=== PATIENT | female | born 1945 | race Caucasian/White ===

== ENCOUNTER 2018-07-31 10:13 | Observation (INO) | payer MEDICARE ==
[2018-07-31 10:57] LABS: #Eosinphils 0.3 thou/uL (0.0-0.7); #Lymphocytes 1.4 thou/uL (1.20-3.40); #Monocytes 0.4 thou/uL (0.11-0.59); %Basophils 0.2 % (0.0-1.0); %Eosinophils 2.5 % (0.0-10.0); %Lymphocytes 11.6 % (21.0-51.0); %Monocytes 3.5 % (0.0-10.0); %Neutrophils 82.2 % (42.0-75.0); Hemoglobin 14.3 g/dL (12.0-16.0); Mean Corpuscular HGB CONC 32.2 g/dL (32.0-36.0); Mean Corpuscular Hemoglobin 29.1 pg (27.0-31.0); Mean Corpuscular Volume 90.4 fL (78.0-98.0); Mean Platelet Volume 7.9 fL (7.4-10.4); Platelet Count 202 thou/uL (130-400); RBC Distribution Width 12.5 % (11.5-14.5); Red Blood Cell (RBC) Count 4.92 mill/uL (4.20-5.40); White Blood Cell (WBC) Count 12.2 thou/uL (4.8-10.8)
[2018-07-31 11:09] LABS: Bilirubin Negative (Negative); Blood, Urine Small (Negative); Clarity CLOUDY (Clear); Glucose, Urine (Dipstick) Negative (Negative); Leukocyte Negative (Negative); Nitrite Negative (Negative); Protein, Urine (Dipstick) 30 mg/dL (Neg-Trace); Specific Gravity, Urine 1.018 (1.002-1.036); Urobilinogen 0.2 mg/dL (0.2-1.0)
[2018-07-31 11:13] LABS: Bacteria/HPF None Seen HPF (None Seen); Pathc Cast-AUWi Flag 1.88 (0-2.49); RBC/HPF 0-3 HPF (0-3); WBC/HPF 0-3 HPF (0-3); Yeast-AUWi Flag 18.8 (0-25.0)
[2018-07-31 11:21] LABS: ALT (SGPT) 19 U/L (8-55); AST (SGOT) 24 U/L (5-34); Albumin 3.8 g/dL (3.4-4.8); Alkaline Phosphatase 71 U/L (40-150); Anion Gap 13 mmol/L (10-20); BUN (Urea Nitrogen) 14 mg/dL (9.8-20.1); Bilirubin, Total 0.6 mg/dL (0.2-1.2); CK (CPK) 41 U/L (29-168); Calc. Creatinine Clearance 0 mL/min (70-130); Calcium 9.3 mg/dL (7.8-10.44); Carbon Dioxide 20 mmol/L (23-31); Chloride 109 mmol/L (98-107); Estimated GFR-MDRD 64; Globulin 3.6 g/dL (2.4-3.5); Glucose 144 mg/dL (83-110); Potassium 4.1 mmol/L (3.5-5.1); Protein, Total 7.4 g/dL (6.0-8.3)
[2018-07-31 11:22] LABS: Hyaline Casts/LPF 0-3 HYALINE CAST LPF (0-3 Hyaline); Renal Epithelial 0-3 HPF (0-3); Transitional Epithelial 0-3 HPF (0-3); Yeast-All Forms Rare HPF (None Seen)
[2018-07-31 11:23] LABS: Crystals/HPF 1+ AMORPH URATES HPF (Negative)
[2018-07-31 11:25] LABS: CKMB 1.8 ng/mL (0-6.6)
[2018-07-31 12:04] LABS: Sodium 138 mmol/L (136-145)
[2018-07-31 12:44] LABS: Troponin I Less than 0.010 ng/mL (< 0.028)
[2018-07-31] MEDS ORDERED: levETIRAcetam In NaCl (Iso-Os) 1,500 MG in Premix Bag 1 BAG IVPB SCH (13:30)
[2018-07-31] MEDS ORDERED: Iopamidol 370 76% 100 ML VIAL ONE (13:42)
--- NOTE | 2018-07-31 13:58 | CT ---
HEAD CT WITHOUT CONTRAST: HISTORY: Level II trauma. Fall from standing. COMPARISON: None. FINDINGS: No parenchymal hemorrhage. No extraaxial hematoma. No midline shift. Basilar cisterns are patent. Brain volume is age appropriate. Cortical miranda white matter differentiation is preserved. Ventricl es and sulci are patent and symmetric. White matter hypodensities due to chronic small vessel ischemic change. The calvarium is intact. There is a right occipital parietal scalp hematoma. Adequate aeration of the sinuses and mastoid air cells. IMPRESSION: No intracranial post traumatic sequela. POS: [facility]
--- NOTE | 2018-07-31 14:06 | CT ---
CERVICAL SPINE CT WITHOUT CONTRAST: 07/31/2018 HISTORY: Fall. Trauma. COMPARISON: None. TECHNIQUE: Serial axial CT imaging obtained at 2.5 mm intervals, from the skull base through the lung apices, wi thout contrast. Coronal and sagittal reformatted imaging obtained. FINDINGS: Imaged lung apices appear grossly unremarkable. There is moderate degenerative change at the atlanto axial interspace. The craniocervical junction appears intact. The C1 ring appears intact. There is no evidence for fracture of the dens. The C1-C2 articulation a ppears grossly unremarkable. C2-C3: No osseous cause of significant central canal or neural foraminal stenosis. C3-C4: Facet and uncovertebral osteophyte formation on the right with extension into the right neura l foramen. C4-C5: No osseous cause of significant central canal or neural foraminal stenosis. Probable disk bu lge and anterior osteophyte formation noted. C5-C6: There is disk space narrowing and posterior osteophyte formation. There is anterior osteophyt e formation as well. There is facet and uncovertebral osteophyte formation on the right with encroac hment on the right neural foramen. C6-C7: There is disk space narrowing and posterior osteophyte formation. There is bilateral facet a nd uncovertebral osteophyte formation. C7-T1: No osseous cause of significant central canal or neural foraminal stenosis. No prevertebral soft tissue swelling. No displaced fracture or evidence of dislocation. IMPRESSION: Multilevel degenerative change. No acute fracture or dislocation. Results called to Dr. Bragg's nurse at 11:08 a.m. on 07/31/2018. CODE CR POS: [facility]
--- NOTE | 2018-07-31 14:23 | RAD ---
CHEST 1 VIEW: HISTORY: Fall. Shortness of breath. FINDINGS: Heart size is enlarged. There are atherosclerotic changes of the aorta. The lungs appear clear of a ny infiltrates. No signs of failure. No rib fractures identified. IMPRESSION: Cardiomegaly. POS: [facility]
[2018-07-31 14:30] LABS: Troponin I 0.014 ng/mL (< 0.028)
--- NOTE | 2018-07-31 14:36 | CT ---
CHEST CT WITH CONTRAST: ABDOMEN CT WITH CONTRAST: PELVIS CT WITH CONTRAST: THORACIC AND LUMBAR SPINE WITH CONTRAST LIMITED: HISTORY: Level II trauma. Fall from standing. COMPARISON: None. FINDINGS: CHEST: No mediastinal mass, lymphadenopathy, or hematoma. Heart size is upper normal. There is no significant pericardial fluid. The thoracic and abdominal aorta have a normal caliber. No periaorti c fat stranding. There are dependent atelectatic changes. Trachea and central bronchi are patent. Patchy ground glas s opacity. ABDOMEN: Slightly limited evaluation due to motion and beam attenuation artifact. There is appropri ate enhancement of the solid organs. No solid organ injury. No abnormal fluid in the perisplenic sp linnea or in Fernandez pouch. The portal vein is patent. Unremarkable gallbladder. Symmetric enhancement of the kidneys. Bilaterally, no obstructive uropathy. No gastrohepatic, retrocrural, or periportal lymphadenopathy. Nonspecific, nonenlarged mesenteric lymph nodes. No mesenteric mass, lymphadenopathy, free air, or f ree fluid. Limited evaluation of the alimentary canal by lack of oral contrast. No evidence of bowel obstructio n. Normal caliber small bowel loops. Scattered fecal material in a nondistended, nondilated colon. Occasional diverticulum. No diverticulitis. Appendix is not appreciated. No inflammation at the c ecal apex. PELVIS: No mass, lymphadenopathy, free air, or free fluid. Unremarkable urinary bladder. The sternum is intact. No bony thoracic fractures. The bony pelvis is intact. THORACIC SPINE AND LUMBAR SPINE: Vertebral body heights are maintained. There is no fracture. IMPRESSION: No posttraumatic sequelae in the chest, abdomen, or pelvis. The results of the head CT and the chest, abdomen, and pelvis CT were discussed with Dr. Bragg on 09/30/2017 at 11:23 a.m. JOSE LEON POS: [facility]
[2018-07-31 15:01] LABS: Lactic Acid 1.6 mmol/L (0.5-2.2)
[2018-07-31] MEDS ORDERED: Nitroglycerin 0.4 MG TAB (25 Tab Bottle) SL PRN (15:23)
[2018-07-31] MEDS ORDERED: hydrALAZINE 20 MG/ML VIAL SLOW IVP PRN (15:23)
[2018-07-31] MEDS ORDERED: Benzonatate 100 MG CAP PO PRN (15:23)
[2018-07-31] MEDS ORDERED: Ondansetron PF 4 MG/2 ML Vial IVP PRN ×2 (15:23)
[2018-07-31] MEDS ORDERED: Acetaminophen 650 MG Suppository PR PRN (15:23)
[2018-07-31] MEDS ORDERED: Acetaminophen 325 MG TAB PO PRN (15:23)
[2018-07-31] MEDS ORDERED: Bisacodyl 5 MG TAB PO PRN (15:23)
[2018-07-31] MEDS ORDERED: Calcium Carbonate 500 MG ChewTAB PO PRN (15:23)
[2018-07-31] MEDS ORDERED: Diabetic Tussin 200 MG/10 ML UDCUP PO PRN (15:23)
[2018-07-31] MEDS ORDERED: Senokot S 8.6-50 MG TAB PO PRN (15:23)
[2018-07-31] MEDS ORDERED: Sodium Chloride 0.65% Nasal 44 ML BOT EA NARE PRN (15:23)
--- NOTE | 2018-07-31 16:38 | HP ---
PRIMARY CARE PHYSICIAN: Francine Maddox M.D. CHIEF COMPLAINT: Fall with possible seizures. HISTORY OF PRESENT ILLNESS: Ms. Lofton is a very pleasant 73-year-old female with known history of A lzheimer dementia, hypertension, and dyslipidemia, who presented to the emergency room with the above -mentioned complaint. History is mainly obtained by the patient's grandson present in the room as we ll as discussion with emergency room physician. Ms. Lofton is unable to give much information at thi s time because of advancing dementia. According to the grandson, Ms. Lofton was walking from one room to another in the house and family he sherley her fall and when they went there, she was found to be in a tonic clonic convulsion like state. She was somewhat confused after that and was brought into the emergency room. They report that she a lso had similar symptoms about 6 months ago which was evaluated at [facility]. They report that she had a workup done for a similar episode including a followup with the neurologist. The grandson does not know the details, but reports that the patient has been having fairly advanced symptoms of dementia. She recently moved to her son 1 month ago because of this. She is fairly dependent on the family for her personal care. In the emergency room, she was hemodynamically stable with blood pressure 152/50, saturating 89% on room air and afebrile. She underwent including a CT scan of the brain, cervical spine, and CT scan of the chest, abdomen, and pelvis. It was negative for any acute changes or fractures. Chest x -ray was unremarkable. Her lab examination are fairly normal. Her CBC shows WBCs at 12.2 with 82% n eutrophils. Serum chemistries are unremarkable. Lactic acid initially was 3.2, which is normal at 1 .6. Cardiac enzymes, BNP normal. Urinalysis is unremarkable. She is now being admitted for further evaluation. She has received 1500 mg of IV Keppra in the emergency room. PAST MEDICAL HISTORY: 1. Hypertension. 2. Dyslipidemia. 3. Alzheimer dementia. PAST SURGICAL HISTORY: Hysterectomy. PSYCHIATRIC HISTORY: No anxiety, no depression. SOCIAL HISTORY: She lives with her family. No history of drug, tobacco or alcohol abuse. ALLERGIES: No known medication allergies. CURRENT MEDICATIONS: Metoprolol 50 mg daily, atorvastatin 20 mg daily, memantine 5 mg daily, donepez il 10 mg daily, and amlodipine 10 mg daily. CODE STATUS: Presumed FULL code at this time. The patient's grandson cannot speak for her and the p marge has advanced dementia and is not able to answer my questions. This will be further readdresse d when her son is here. REVIEW OF SYSTEMS: A 12-point review of systems was done. It is negative except for those mentioned in the history and physical. This is limited because of patient's dementia, but she is feeling quit e comfortable at the moment. LABORATORY DATA: CBC shows WBCs 12.2, 82% neutrophils. Serum chemistries show bicarbonate 20, chlor larry 109, glucose 144. Lactic acid 3.2 with repeat lactic acid of 1.6. CK-MB and troponin normal. C reatinine kinase is normal. BNP 55. Urinalysis has little blood. CT scan of the brain by my review has no evidence of any hemorrhage or acute infarction. Chest x-ray by my review shows no pulmonary edema, effusion or infiltrate. CT scan of the chest, abdomen, and p alma is unremarkable. PHYSICAL EXAMINATION: VITAL SIGNS: Most recent vital signs, temperature 98, pulse of 60, blood pressure 138/75, 92% on janett m air, respirations 18. GENERAL: No acute distress, lying comfortably in bed, awake, alert, oriented to self and place. She is able to tell me her name and that she is at the hospital. She is not able to tell me how many ki ds. She has been confused as a grandson with her son. HEENT: Mucous membrane is moist. She has evidence of tongue biting with some bruising of the tongue on the right lateral side. Head is normocephalic, atraumatic. She has a small laceration in the ri ght occipital region. Pupils equal, reactive to light and accommodation. NECK: Supple without any lymphadenopathy, JVD or bruit. CHEST: Clear to auscultation without any wheezing, rales or rhonchi. CARDIOVASCULAR: Rhythm is regular without any murmur, rubs or gallops. ABDOMEN: Soft, nontender, nondistended, positive bowel sounds. EXTREMITIES: Free of any cyanosis, clubbing, or edema. NEUROLOGIC: Largely nonfocal, but it is limited because of the patient not able to follow commands t o a certain extent because of dementia. IMPRESSION AND PLAN: 1. Fall and possible seizures. This is apparently the patient's second episode. It is unclear if s he actually has had seizures or not. She reportedly had a thorough workup done at [facility]. At this time, she will be admitted under observation status to stroke floor and we will consult Neuro logy for further recommendations. We will obtain an MRI and EEG and continue IV Keppra until the sei zures are ruled out. 2. History of hypertension. Restart her home medications of Norvasc and metoprolol. Currently cont rolled. 3. Dyslipidemia. Continue atorvastatin. 4. History of Alzheimer's dementia. She follows up with Neurology at [facility] in the outpati ent setting in [place], [place]. We will continue memantine and donepezil for now. 5. Code status: Presumed FULL at this time. Discussed with the grandson. Add walking program and speech eval and p.r.n. medications. DISPOSITION: Ms. Lofton is currently being admitted to the hospital after sustaining a fall and ques tion of possible seizures leading to the fall. She is currently in the observation status, but furth er management will depend on her clinical course.
[2018-07-31] MEDS: Sodium Chloride 0.9% 1,000 ML IV SCH (16:49)
[2018-07-31 17:18] LABS: Troponin I Less than 0.010 ng/mL (< 0.028)
[2018-07-31] MEDS: Atorvastatin Calcium 20 MG TAB PO SCH (20:37)
[2018-07-31] MEDS: Famotidine/PF 20 mg/2ml Vial SLOW IVP SCH (20:39)
[2018-08-01 05:12] LABS: #Basophils 0.1 thou/uL (0.0-0.2); #Eosinphils 0.4 thou/uL (0.0-0.7); #Lymphocytes 2.1 thou/uL (1.20-3.40); #Monocytes 0.7 thou/uL (0.11-0.59); #Neutrophils 7.2 thou/uL (1.40-6.50); %Basophils 0.5 % (0.0-1.0); %Eosinophils 4.3 % (0.0-10.0); %Lymphocytes 20.3 % (21.0-51.0); %Monocytes 6.6 % (0.0-10.0); %Neutrophils 68.3 % (42.0-75.0); Hemoglobin 11.7 g/dL (12.0-16.0); Mean Corpuscular HGB CONC 32.5 g/dL (32.0-36.0); Mean Corpuscular Hemoglobin 28.8 pg (27.0-31.0); Mean Corpuscular Volume 88.7 fL (78.0-98.0); Platelet Count 199 thou/uL (130-400); RBC Distribution Width 12.4 % (11.5-14.5); Red Blood Cell (RBC) Count 4.08 mill/uL (4.20-5.40); White Blood Cell (WBC) Count 10.5 thou/uL (4.8-10.8)
[2018-08-01 05:24] LABS: Anion Gap 11 mmol/L (10-20); BUN (Urea Nitrogen) 10 mg/dL (9.8-20.1); Calc. Creatinine Clearance 108 mL/min (70-130); Calcium 8.6 mg/dL (7.8-10.44); Carbon Dioxide 24 mmol/L (23-31); Chloride 109 mmol/L (98-107); Estimated GFR-MDRD 74; Glucose 106 mg/dL (83-110); Potassium 3.6 mmol/L (3.5-5.1); Sodium 140 mmol/L (136-145)
[2018-08-01] MEDS ORDERED: Prevnar 13-Val Conj/PF 0.5 ML SYRINGE IM ONE (09:00)
[2018-08-01] MEDS: Enoxaparin Sodium 40 MG/0.4 ML SYRINGE SC SCH (09:08)
[2018-08-01] MEDS: Famotidine/PF 20 mg/2ml Vial SLOW IVP SCH ×2 (09:09→21:06)
[2018-08-01] MEDS: Donepezil HCl 10 MG TAB PO SCH (09:11)
[2018-08-01] MEDS: levETIRAcetam 500 MG TAB PO SCH ×2 (09:11→21:11)
[2018-08-01] MEDS: Amlodipine 10 MG TAB PO SCH (09:12)
[2018-08-01] MEDS: Sodium Chloride 0.9% 1,000 ML IV SCH ×2 (09:17→21:04)
[2018-08-01] MEDS ORDERED: Lorazepam 2 MG/ML VIAL SLOW IVP SCH (10:15)
--- NOTE | 2018-08-01 11:27 | PDOC.PN ---
- Subjective Encounter Start Date: 08/01/18 Encounter Start Time: 11:46 Subjective: feels well. denies any discomfort -: Grandson at bedside & reports omero she slept well -: no N/V/D - Objective MAR Reviewed: Yes Vital Signs & Weight: Vital Signs (12 hours) Temp Pulse Resp BP BP Pulse Ox 08/01/18 09:12 60 135/60 08/01/18 07:48 98.1 F 60 20 134/40 L 92 L 08/01/18 03:41 97.8 F 62 16 138/51 L 93 L 07/31/18 23:34 98.2 F 64 16 144/47 H 98 Weight Weight 236 lb 8 oz I&O: 07/31/18 08/01/18 08/02/18 06:59 06:59 05:59 Intake Total 925 120 Balance 925 120 Result Diagrams: 08/01/18 04:56 08/01/18 04:56 Additional Labs: Laboratory Tests 07/31/18 07/31/18 07/31/18 10:48 10:48 10:48 Creatinine 0.86 Lactic Acid 3.2 H Troponin I Less than 0.010 07/31/18 07/31/18 07/31/18 13:55 14:30 16:45 Creatinine Lactic Acid 1.6 Troponin I 0.014 Less than 0.010 08/01/18 04:56 Creatinine 0.76 Lactic Acid Troponin I Phys Exam - Physical Examination Constitutional: NAD HEENT: PERRLA, moist MMs, sclera anicteric, oral pharynx no lesions Neck: no nodes, no JVD, supple, full ROM Respiratory: no wheezing, no rales, no rhonchi, clear to auscultation bilateral Cardiovascular: RRR, no significant murmur, no rub Gastrointestinal: soft, non-tender, no distention, positive bowel sounds Musculoskeletal: no edema, pulses present Neurological: non-focal, normal sensation, moves all 4 limbs Psychiatric: normal affect Dx/Plan (1) Altered mental status Code(s): R41.82 - ALTERED MENTAL STATUS, UNSPECIFIED Status: Resolved (2) Seizure Code(s): R56.9 - UNSPECIFIED CONVULSIONS Status: Suspected (3) Dementia in Alzheimer's disease Code(s): G30.9 - ALZHEIMER'S DISEASE, UNSPECIFIED; F02.80 - DEMENTIA IN OTH DISEASES CLASSD ELSWHR W/O BEHAVRL DISTURB Status: Chronic (4) HTN (hypertension) Code(s): I10 - ESSENTIAL (PRIMARY) HYPERTENSION Status: Chronic (5) HLD (hyperlipidemia) Code(s): E78.5 - HYPERLIPIDEMIA, UNSPECIFIED Status: Chronic - Plan plan discussed w/ family, PT/OT, out of bed/ambulate, DVT proph w/SCDs change keppra to PO. no seizure activity here -: MRI and Neuro recs pending -: OT/PT.SNIF eval per family request -: HD stable.cont home meds -: UA WNL.no evidence of infection * . Review of Systems - Review of Systems Respiratory: negative: Cough, Dry, Shortness of Breath, Hemoptysis, SOB with Excertion, Pleuritic Pain, Sputum, Wheezing Cardiovascular: negative: chest pain, palpitations, orthopnea, paroxysmal nocturnal dyspnea, edema, light headedness, other Gastrointestinal: negative: Nausea, Vomiting, Abdominal Pain, Diarrhea, Constipation, Melena, Hematochezia, Other Genitourinary: negative: Dysuria, Frequency, Incontinence, Hematuria, Retention , Other Skin: negative: Rash, Lesions, Charles, Bruising, Other Other: Limited ROS due to dementia - Medications/Allergies Allergies/Adverse Reactions: Allergies Allergy/AdvReac Type Severity Reaction Status Date / Time No Known Drug Allergies Allergy Verified 07/31/18 13:23 Medications: Current Medications Acetaminophen (Tylenol) 650 mg PO Q4H PRN PRN Reason: Headache/Fever/Mild Pain (1-3) Acetaminophen (Tylenol) 650 mg AR Q4H PRN PRN Reason: Headache/Fever/Mild Pain (1-3) Amlodipine Besylate (Norvasc) 10 mg PO DAILY [facility] Last Admin: 08/01/18 09:12 Dose: 10 mg Atorvastatin Calcium (Lipitor) 20 mg PO HS [facility] Last Admin: 07/31/18 20:37 Dose: 20 mg Benzonatate (Tessalon) 100 mg PO Q6H PRN PRN Reason: Cough Bisacodyl (Dulcolax) 10 mg PO DAILYPRN PRN PRN Reason: Constipation Calcium Carbonate (Tums) 1,000 mg PO Q4H PRN PRN Reason: Heartburn or Indigestion Clonidine (Catapres) 0.1 mg PO Q4H PRN PRN Reason: SBP > 160____ Donepezil HCl (Aricept) 10 mg PO DAILY [facility] Last Admin: 08/01/18 09:11 Dose: 10 mg Enoxaparin Sodium (Lovenox) 40 mg SC 0900 [facility] Last Admin: 08/01/18 09:08 Dose: 40 mg Famotidine (Pepcid) 20 mg SLOW IVP Q12HR [facility] Last Admin: 08/01/18 09:09 Dose: 20 mg Guaifenesin (Robitussin Sf) 200 mg PO Q4H PRN PRN Reason: Cough Hydralazine HCl (Apresoline) 10 mg SLOW IVP Q4H PRN PRN Reason: SBP > 180 and HR < 70 Sodium Chloride (Normal Saline 0.9%) 1,000 mls @ 75 mls/hr IV .[id number] [facility] Last Admin: 08/01/18 09:17 Dose: 1,000 mls Levetiracetam (Keppra) 500 mg PO BID [facility] Last Admin: 08/01/18 09:11 Dose: 500 mg Lorazepam (Ativan) 1 mg SLOW IVP WILLCALL [facility] Memantine (Namenda) 5 mg PO DAILY [facility] Last Admin: 08/01/18 09:11 Dose: 5 mg Metoprolol Succinate (Toprol Xl) 50 mg PO DAILY [facility] Last Admin: 08/01/18 09:11 Dose: 50 mg Nitroglycerin (Nitrostat) 0.4 mg SL Q5MIN PRN PRN Reason: Chest Pain Ondansetron HCl (Zofran) 4 mg IVP Q6H PRN PRN Reason: Nausea/Vomiting Senna/Docusate Sodium (Senokot S) 2 tab PO BID PRN PRN Reason: Constipation Sodium Chloride ([place] Nasal Tiller 0.65%) 0 ml EA NARE QIDPRN PRN PRN Reason: Nasal Congestion Sodium Chloride (Flush - Normal Saline) 10 ml IVF Q12HR [facility] Last Admin: 08/01/18 10:54 Dose: Not Given Sodium Chloride (Flush - Normal Saline) 10 ml IVF PRN PRN PRN Reason: Saline Flush
--- NOTE | 2018-08-01 16:29 | MRI ---
MRI OF BRAIN PERFORMED WITH AND WITHOUT CONTRAST ENHANCEMENT: 08/01/18 HISTORY: Syncope and seizures. COMPARISON: CT examination of 07/31/18 which was performed after a fall. There is generalized ventricular and sulcal prominence with increased T2 and FLAIR signal change with in the white matter. I do not see any signs of hemorrhage or mass effect. Motion artifact does rather significantly degrade detail. On the diffusion weighted sequence, I do not see any signs that would suggest any type of infarct. The postcontrast images are very suboptimal due to motion, but I see no abnormal enhancement. IMPRESSION: Atrophy and chronic white matter change. No acute intracranial abnormalities. POS: [facility]
--- NOTE | 2018-08-01 17:24 | CON ---
DATE OF CONSULTATION: 08/01/2018 CHIEF COMPLAINT: Seizure. HISTORY OF PRESENT ILLNESS: Patient is unable to give any history. History was given by her grandson who was in the room. Patient has moderate to severe Alzheimer's dementia. The patient is a pleasant 73-year-old lady who comes to the emergency room following a seizure. She was temporarily living with her son because her has been admitted to the hospital for cardiac surgery for heart valve repair. She was going to the bathroom at her son's home and son and grandson heard that she yelled out quite loudly and they found her on the floor. She was in a seizure with generalized tonic-clonic convulsions along with a head injury on the right side of her head and she was biting her tongue and it lasted a few minutes and this event led her to come to the hospital. Post seizure, she was somewhat confused. She had a similar episode 6 months ago and was evaluated at [facility]. She had a workup completed and she has been following with her neurologist and does not know the name of the neurologist and the patient's regular physician is at [facility]. There was no weakness or any other neurological symptoms associated with this event. PREVIOUS MEDICAL HISTORY: The patient has hypertension, dyslipidemia, and Alzheimer's disease. PAST SURGICAL HISTORY: Positive for hysterectomy. FAMILY HISTORY: Negative for seizures. HOME MEDICATIONS: Include metoprolol 150 mg per day, clotrimazole cream, Namenda 5 mg once daily, amlodipine 10 mg per day, atorvastatin 10 mg per day, and patient also takes donepezil 10 mg once daily, fish oil once daily. She is also on losartan 100 mg per day plus aspirin 81 mg per day and CoQ10 100 mg per day. REVIEW OF SYSTEMS: Unobtainable. LABORATORY DATA AND IMAGING DATA: White count 10.5, hemoglobin 11.7, hematocrit 36.2, platelets 199. Chemistry: Sodium 140, potassium 3.6, chloride 109, bicarbonate 24, BUN 10, creatinine 0.76 and urine positive for small amount of blood and her brain CT scan was performed and it shows no intracranial posttraumatic sequela. She also had CT of her cervical spine which showed multilevel degenerative changes, no acute fracture or dislocation. Chest and abdominal CT shows no posttraumatic sequelae. PHYSICAL EXAMINATION: VITAL SIGNS: Her blood pressure 138/77, O2 sats 92%, temperature 98.3, pulse is 53. GENERAL APPEARANCE: Patient is comfortable in bed. She does not like to wear clothes or gown. So she had to be placed in the ground during our evaluation by her nurse. Patient is completely unable to follow commands and continues to smile. CHEST: Clear vesicular breathing. CARDIOVASCULAR: S1, S2 heard, no murmurs. ABDOMEN: Soft, no organomegaly noted. NEUROLOGIC: Higher intellectual function. She is able to tell us she is at a hospital and she is unable to talk much or give us date of or any other details. Cranial nerve exam. Tongue appears to be midline. Extraocular movements. She is able to follow with her eyes, but unable to follow commands for proper cranial nerve exam and she seems to have normal hearing. Pupils are reactive to light bilaterally. Motor examination: Bulk normal, tone normal, strength is difficult to perform. I examined individual muscle groups, but overall she seems to move all her extremities equally. Reflexes are 1+ throughout in upper and lower extremities. Sensory, cerebellar and gait unable to examine. IMPRESSION: Patient is a 73-year-old lady with preexisting Alzheimer's dementia. She is brought in with a history of severe dementia plus one seizure with the head injury and she had a similar generalized tonic clonic seizure 6 months ago. Her examination is pretty much at her baseline with advanced dementia and she is unable to follow any commands. Clinical history and diagnosis is most consistent with seizure disorder in the setting of dementia. RECOMMENDATIONS: 1. I discussed with her grandson that she is more prone to seizures due to her degenerative disease and that she needs to be on an anticonvulsant. 2. Agree with Keppra for now and she is on 500 mg b.i.d. of Keppra at this time since hospitalization and she is currently pending MRI. 3. I will follow up on her MRI scan once completed and the EEG is also pending. We will follow up the patient with you. This consult [facility] us[facility]icine [facility]
[2018-08-01 20:20] VITALS: BMI 40.5
[2018-08-01] MEDS: Atorvastatin Calcium 20 MG TAB PO SCH (21:07)
[2018-08-02] MEDS: Sodium Chloride 0.9% 1,000 ML IV SCH ×2 (06:47→21:14)
[2018-08-02] MEDS: levETIRAcetam 500 MG TAB PO SCH ×2 (08:24→21:15)
[2018-08-02] MEDS: Donepezil HCl 10 MG TAB PO SCH (08:24)
[2018-08-02] MEDS: Famotidine/PF 20 mg/2ml Vial SLOW IVP SCH ×2 (08:25→21:15)
[2018-08-02] MEDS: Amlodipine 10 MG TAB PO SCH (08:25)
[2018-08-02] MEDS: Enoxaparin Sodium 40 MG/0.4 ML SYRINGE SC SCH (08:26)
--- NOTE | 2018-08-02 10:54 | PDOC.PN ---
- Subjective Encounter Start Date: 08/02/18 Encounter Start Time: 10:52 Subjective: feels good. no seizure like activity overnight -: care discussed w son at bedside - Objective MAR Reviewed: Yes Vital Signs & Weight: Vital Signs (12 hours) Temp Pulse Resp BP BP Pulse Ox 08/02/18 08:25 61 169/67 H 08/02/18 08:00 98 F 61 20 169/69 H 92 L 08/02/18 05:01 95 08/02/18 03:57 97.7 F 56 L 18 160/75 H 95 08/02/18 03:15 97.7 F 56 L 16 160/75 H 95 08/02/18 00:00 97.8 F 60 18 116/55 L 88 L Weight Admit Weight 236 lb 8 oz Weight 236 lb I&O: 08/01/18 08/02/18 08/03/18 07:59 06:59 06:59 Intake Total Balance Result Diagrams: 08/01/18 04:56 08/01/18 04:56 Radiology Reviewed by me: Yes (MRI brain-no acute changes) Phys Exam - Physical Examination Constitutional: NAD HEENT: PERRLA, moist MMs, sclera anicteric, oral pharynx no lesions Neck: no nodes, no JVD, supple, full ROM Respiratory: no wheezing, no rales, no rhonchi, clear to auscultation bilateral Cardiovascular: RRR, no significant murmur, no rub Gastrointestinal: soft, non-tender, no distention, positive bowel sounds Musculoskeletal: no edema, pulses present Neurological: non-focal, normal sensation, moves all 4 limbs Psychiatric: normal affect, A&O x 3 Skin: no rash Dx/Plan (1) Seizure Code(s): R56.9 - UNSPECIFIED CONVULSIONS Status: Suspected (2) Altered mental status Code(s): R41.82 - ALTERED MENTAL STATUS, UNSPECIFIED Status: Resolved (3) Dementia in Alzheimer's disease Code(s): G30.9 - ALZHEIMER'S DISEASE, UNSPECIFIED; F02.80 - DEMENTIA IN OTH DISEASES CLASSD ELSWHR W/O BEHAVRL DISTURB Status: Chronic (4) HTN (hypertension) Code(s): I10 - ESSENTIAL (PRIMARY) HYPERTENSION Status: Chronic (5) HLD (hyperlipidemia) Code(s): E78.5 - HYPERLIPIDEMIA, UNSPECIFIED Status: Chronic - Plan plan discussed w/ family, PT/OT, out of bed/ambulate, DVT proph w/SCDs cont keppra BID.OP f/u.HD stable.apprecite Neuro input -: SNIf eval as pt not safe for home DC w advanced dementia -: cont meds as below * . Review of Systems - Review of Systems Other: limited due to advanced dementia - Medications/Allergies Allergies/Adverse Reactions: Allergies Allergy/AdvReac Type Severity Reaction Status Date / Time No Known Drug Allergies Allergy Verified 07/31/18 13:23 Medications: Current Medications Acetaminophen (Tylenol) 650 mg PO Q4H PRN PRN Reason: Headache/Fever/Mild Pain (1-3) Acetaminophen (Tylenol) 650 mg [place] Q4H PRN PRN Reason: Headache/Fever/Mild Pain (1-3) Amlodipine Besylate (Norvasc) 10 mg PO DAILY REPLACED BY [facility] Last Admin: 08/02/18 08:25 Dose: 10 mg Atorvastatin Calcium (Lipitor) 20 mg PO HS REPLACED BY [facility] Last Admin: 08/01/18 21:07 Dose: 20 mg Benzonatate (Tessalon) 100 mg PO Q6H PRN PRN Reason: Cough Bisacodyl (Dulcolax) 10 mg PO DAILYPRN PRN PRN Reason: Constipation Calcium Carbonate (Tums) 1,000 mg PO Q4H PRN PRN Reason: Heartburn or Indigestion Clonidine (Catapres) 0.1 mg PO Q4H PRN PRN Reason: SBP > 160____ Donepezil HCl (Aricept) 10 mg PO DAILY REPLACED BY [facility] Last Admin: 08/02/18 08:24 Dose: 10 mg Enoxaparin Sodium (Lovenox) 40 mg SC 0900 REPLACED BY [facility] Last Admin: 08/02/18 08:26 Dose: 40 mg Famotidine (Pepcid) 20 mg SLOW IVP Q12HR REPLACED BY [facility] Last Admin: 08/02/18 08:25 Dose: 20 mg Guaifenesin (Robitussin Sf) 200 mg PO Q4H PRN PRN Reason: Cough Hydralazine HCl (Apresoline) 10 mg SLOW IVP Q4H PRN PRN Reason: SBP > 180 and HR < 70 Sodium Chloride (Normal Saline 0.9%) 1,000 mls @ 75 mls/hr IV .[id number] REPLACED BY [facility] Last Admin: 08/02/18 06:47 Dose: 1,000 mls Levetiracetam (Keppra) 500 mg PO BID REPLACED BY [facility] Last Admin: 08/02/18 08:24 Dose: 500 mg Lorazepam (Ativan) 1 mg SLOW IVP WILLCALL REPLACED BY [facility] Last Admin: 08/01/18 14:35 Dose: 1 mg Memantine (Namenda) 5 mg PO DAILY REPLACED BY [facility] Last Admin: 08/02/18 08:24 Dose: 5 mg Metoprolol Succinate (Toprol Xl) 50 mg PO DAILY REPLACED BY [facility] Last Admin: 08/02/18 08:25 Dose: 50 mg Nitroglycerin (Nitrostat) 0.4 mg SL Q5MIN PRN PRN Reason: Chest Pain Ondansetron HCl (Zofran) 4 mg IVP Q6H PRN PRN Reason: Nausea/Vomiting Senna/Docusate Sodium (Senokot S) 2 tab PO BID PRN PRN Reason: Constipation Sodium Chloride ([place] Nasal [place] 0.65%) 0 ml EA NARE QIDPRN PRN PRN Reason: Nasal Congestion Sodium Chloride (Flush - Normal Saline) 10 ml IVF Q12HR REPLACED BY [facility] Last Admin: 08/02/18 08:27 Dose: Not Given Sodium Chloride (Flush - Normal Saline) 10 ml IVF PRN PRN PRN Reason: Saline Flush
[2018-08-02] MEDS: cloNIDine 0.1 MG TAB PO PRN ×2 (11:44→16:31)
--- NOTE | 2018-08-02 17:42 | PRG ---
DATE OF CONSULTATION: 08/02/2018 CHIEF COMPLAINT: Seizure. INTERVAL HISTORY: The patient has remained stable and has not had any further seizures. Son was by the bedside today and gave additional history. During her first seizure 6 months ago, she landed on a couch and had generalized tonic clonic seizures and during this time she landed on the floor and hurt her head and postictally she was out of it for 30 minutes and there is no family history of seizures and Dr. Noble is her primary neurologist and he works through [employer] LABORATORY DATA AND IMAGING DATA: Current laboratory results; white count 10.5 , hemoglobin 11.7, hematocrit 36.2, MCV 88.7, platelets 199. Sodium 140, potassium 3.6, chloride 109, bicarbonate 24, BUN 10, creatinine 0.76 and her lactic acid level on 07/31/2018 was 3.2 in the morning and 1.6 later on in the afternoon. Her MRI of the brain was performed yesterday and it showed atrophy and chronic white matter changes, no acute intracranial abnormalities. PHYSICAL EXAMINATION: VITAL SIGNS: Blood pressure 169/67, pulse 61, temperature 98. GENERAL APPEARANCE: She is alert and smiling and pleasantly confused and higher intellectual fixed functions. She is not very verbal and she does not seem to know how to follow commands. Cranial nerve examination, no facial asymmetry, difficult to assess. Normal EOM, it is difficult to have her open her mouth properly for us to visualize. Motor exam, she seems to move all extremities, has good hand consumer affairs specialist, but is still not able to follow full commands. IMPRESSION: Patient has severe dementia and has seizures and she had a second seizure prior to this visit. Therefore, she is maintained now on Keppra and seems to be tolerating the medication well and did not have any further seizures. RECOMMENDATIONS: 1. I discussed her situation with her son and son requested that they are looking for long-term placement such as a retirement because they are unable to care for her at home and their father is also sick. 2. Please continue Keppra for now and call me if you need any further assistance. At this time we are looking at long-term care needs. TEOFILO
[2018-08-02] MEDS: Atorvastatin Calcium 20 MG TAB PO SCH (21:15)
[2018-08-03] MEDS: Enoxaparin Sodium 40 MG/0.4 ML SYRINGE SC SCH (08:56)
[2018-08-03] MEDS: Amlodipine 10 MG TAB PO SCH (08:56)
[2018-08-03] MEDS: Famotidine/PF 20 mg/2ml Vial SLOW IVP SCH (08:56)
[2018-08-03] MEDS: Donepezil HCl 10 MG TAB PO SCH (08:57)
[2018-08-03] MEDS: levETIRAcetam 500 MG TAB PO SCH (08:57)
--- NOTE | 2018-08-03 12:01 | PDOC.PN ---
- Subjective Encounter Start Date: 08/03/18 Encounter Start Time: 12:00 Subjective: no new complaints but son reports one more episode -: pt became stif and stared in space for <30 secs yesterday X1 -: not witnessed by nursing staff - Objective MAR Reviewed: Yes Vital Signs & Weight: Vital Signs (12 hours) Temp Pulse Pulse Resp BP BP BP 08/03/18 08:59 57 L 179/79 H 149/67 H 08/03/18 08:56 57 L 179/79 H 08/03/18 07:52 97.7 F 57 L 16 08/03/18 04:00 98.0 F 55 L 18 08/03/18 00:00 97.7 F 54 L 18 BP Pulse Ox 08/03/18 08:59 08/03/18 08:56 08/03/18 07:52 179/79 H 93 L 08/03/18 04:00 161/76 H 97 08/03/18 00:00 156/107 H 95 Weight Admit Weight 236 lb 8 oz Weight 238 lb 9 oz I&O: 08/02/18 08/03/18 08/04/18 06:59 06:59 06:59 Intake Total 2751 1 Balance 2751 1 Result Diagrams: 08/01/18 04:56 08/01/18 04:56 Radiology Reviewed by me: Yes (MRI- no acue changes) Phys Exam - Physical Examination Constitutional: NAD HEENT: PERRLA, moist MMs, sclera anicteric, TM's clear, oral pharynx no lesions , 2+ tonsils Neck: no nodes, no JVD, supple, full ROM Respiratory: no wheezing, no rales, no rhonchi, clear to auscultation bilateral Cardiovascular: RRR, no significant murmur Gastrointestinal: soft, non-tender, no distention, positive bowel sounds Musculoskeletal: no edema, pulses present Neurological: non-focal, normal sensation, moves all 4 limbs Psychiatric: normal affect, A&O x 3 Dx/Plan (1) Altered mental status Code(s): R41.82 - ALTERED MENTAL STATUS, UNSPECIFIED Status: Resolved (2) Seizure Code(s): R56.9 - UNSPECIFIED CONVULSIONS Status: Suspected (3) Dementia in Alzheimer's disease Code(s): G30.9 - ALZHEIMER'S DISEASE, UNSPECIFIED; F02.80 - DEMENTIA IN OTH DISEASES CLASSD ELSWHR W/O BEHAVRL DISTURB Status: Chronic (4) HTN (hypertension) Code(s): I10 - ESSENTIAL (PRIMARY) HYPERTENSION Status: Chronic (5) HLD (hyperlipidemia) Code(s): E78.5 - HYPERLIPIDEMIA, UNSPECIFIED Status: Chronic - Plan PT/OT, out of bed/ambulate, DVT proph w/SCDs cont keppra.OP work up Negative at [facility] -: OK to DC to rehab when arranged * . Review of Systems - Review of Systems Other: can not be obtained due to severe dementia - Medications/Allergies Allergies/Adverse Reactions: Allergies Allergy/AdvReac Type Severity Reaction Status Date / Time No Known Drug Allergies Allergy Verified 07/31/18 13:23 Medications: Current Medications Acetaminophen (Tylenol) 650 mg PO Q4H PRN PRN Reason: Headache/Fever/Mild Pain (1-3) Acetaminophen (Tylenol) 650 mg [place] Q4H PRN PRN Reason: Headache/Fever/Mild Pain (1-3) Amlodipine Besylate (Norvasc) 10 mg PO DAILY [facility] Last Admin: 08/03/18 08:56 Dose: 10 mg Atorvastatin Calcium (Lipitor) 20 mg PO HS [facility] Last Admin: 08/02/18 21:15 Dose: 20 mg Benzonatate (Tessalon) 100 mg PO Q6H PRN PRN Reason: Cough Bisacodyl (Dulcolax) 10 mg PO DAILYPRN PRN PRN Reason: Constipation Calcium Carbonate (Tums) 1,000 mg PO Q4H PRN PRN Reason: Heartburn or Indigestion Clonidine (Catapres) 0.1 mg PO Q4H PRN PRN Reason: SBP > 160____ Last Admin: 08/02/18 16:31 Dose: 0.1 mg Donepezil HCl (Aricept) 10 mg PO DAILY [facility] Last Admin: 08/03/18 08:57 Dose: 10 mg Enoxaparin Sodium (Lovenox) 40 mg SC 0900 [facility] Last Admin: 08/03/18 08:56 Dose: 40 mg Famotidine (Pepcid) 20 mg SLOW IVP Q12HR [facility] Last Admin: 08/03/18 08:56 Dose: 20 mg Guaifenesin (Robitussin Sf) 200 mg PO Q4H PRN PRN Reason: Cough Hydralazine HCl (Apresoline) 10 mg SLOW IVP Q4H PRN PRN Reason: SBP > 180 and HR < 70 Sodium Chloride (Normal Saline 0.9%) 1,000 mls @ 75 mls/hr IV .[id number] [facility] Last Admin: 08/02/18 21:14 Dose: 1,000 mls Levetiracetam (Keppra) 500 mg PO BID [facility] Last Admin: 08/03/18 08:57 Dose: 500 mg Lorazepam (Ativan) 1 mg SLOW IVP WILLCALL [facility] Last Admin: 08/01/18 14:35 Dose: 1 mg Memantine (Namenda) 5 mg PO DAILY [facility] Last Admin: 08/03/18 08:57 Dose: 5 mg Metoprolol Succinate (Toprol Xl) 50 mg PO DAILY [facility] Last Admin: 08/03/18 08:57 Dose: 50 mg Nitroglycerin (Nitrostat) 0.4 mg SL Q5MIN PRN PRN Reason: Chest Pain Ondansetron HCl (Zofran) 4 mg IVP Q6H PRN PRN Reason: Nausea/Vomiting Senna/Docusate Sodium (Senokot S) 2 tab PO BID PRN PRN Reason: Constipation Sodium Chloride ([place] Nasal [place] 0.65%) 0 ml EA NARE QIDPRN PRN PRN Reason: Nasal Congestion Sodium Chloride (Flush - Normal Saline) 10 ml IVF Q12HR [facility] Last Admin: 08/03/18 08:57 Dose: 10 ml Sodium Chloride (Flush - Normal Saline) 10 ml IVF PRN PRN PRN Reason: Saline Flush
[2018-08-03] MEDS: Sodium Chloride 0.9% 1,000 ML IV SCH (14:47)
[2018-08-03 16:13] VITALS: BP 154/67; TEMP 98.4
--- NOTE | 2018-08-03 19:19 | DIS ---
DATE OF ADMISSION: 07/31/2018 DATE OF DISCHARGE: 08/03/2018 CONDITION AT THE TIME OF DISCHARGE: Stable and improved. DISCHARGE DISPOSITION: [facility]. PRIMARY CARE PHYSICIAN: DISCHARGE DIAGNOSES: 1. Altered mental status. 2. Seizure, possibly. 3. Alzheimer dementia. 4. Hypertension. 5. Dyslipidemia. PROCEDURES DONE IN THE HOSPITAL: 1. CT scan of the brain and cervical spinal CT upon presentation, which is unremarkable for any acut e changes. No fractures. CT scan of the chest, abdomen, and pelvis which once again negative for an y acute processes. 2. MRI of the brain which does not show any acute changes. Atrophy and chronic white matter changes are seen. INHOUSE CONSULTATION: Neurology, Dr. Viki Lopez. DISCHARGE MEDICATIONS: Resume home medications as per the HPI. New medications: Keppra 500 mg p.o. b.i.d. HISTORY OF PRESENTING ILLNESS: Ms. Lofton was brought in by her family after she sustained a fall an d there was some question of seizure-like activity with tonic-clonic convulsions. Upon presentation, she underwent a workup for traumatic encounter and all the imaging studies were unremarkable. She w as admitted to stroke floor for possible seizures. She was loaded with IV Keppra. Neurology was con sulted. There was no acute stroke on presentation. Please see admission history and physical dictat ed by myself for further detail. HOSPITAL COURSE: The patient's hospital course was unremarkable. She actually has had extensive wor kup done in the outpatient setting at [facility]. Neurology was consulted and she unde rwent an MRI. MRI was negative for any acute changes. Dr. Lopez recommended continuation of Keppra for unforeseeable future for now. This was done and the patient remained hemodynamically stable, an d event free throughout her hospitalization. For discharge, the patient's family demonstrated inability to take care of her. They said that APS i s also involved as they physically unable to take care of her and take her back home. At this time, they are looking into fdc placement for her. As per their request, rehab was consulted and the patient was accepted. She otherwise had unremarkable hospital course. Rehabilitation has been arranged for her and that the patient will be discharged. She was seen and e xamined prior to discharge. Please see hospitalist progress note from date of discharge for further detail including [id number] interaction. Discharge plan was discussed with the patient's son blas mishra in the room who verbalized understanding. Total time spent 32 minutes.
== END 2018-08-03 16:51 ==
LOC: ERS 10:13 → 2SE 13:37
PROVIDERS: ADMIT Internal Medicine; ATTEND Internal Medicine
DX: G40.309 Generalized idiopathic epilepsy and epileptic syndromes, not intractable, without status epilepticus (principal); R41.82 Altered mental status, unspecified; G30.9 Alzheimer's disease, unspecified; F02.80 Dementia in other diseases classified elsewhere, unspecified severity, without behavioral disturbance, psychotic disturbance, mood disturbance, and anxiety; I10 Essential (primary) hypertension; E78.5 Hyperlipidemia, unspecified; Z79.82 Long term (current) use of aspirin; Z79.899 Other long term (current) drug therapy; W19.XXXA Unspecified fall, initial encounter
CPT/HCPCS: 51701; 70450; 70553; 71045; 71260; 72125; 74177; 80048; 80053; 82550; 82553; 83605; 83880; 84484 ×2; 85025 ×2; 90662; 90670; 93005; 94760; 96361 ×4; 96365; 96366; 96372 ×3; 96375 ×2; 96376 ×3; 97116 ×2; 97139 ×5; 97530; 99285; G0008; G0009; G0378 ×3; G8978; G8979; G8987; G8988; J1953; 36415; 81003; 81015; 90471; A4353; G8996-GN-CJ; G8997-GN-CI; J1650; J2060; S0028

== ENCOUNTER 2018-12-20 17:10 | Emergency (ER) | payer MEDICARE ==
[2018-12-20 17:52] LABS: #Basophils 0.1 thou/uL (0.0-0.2); #Eosinphils 0.4 thou/uL (0.0-0.7); #Lymphocytes 2.3 thou/uL (1.20-3.40); #Monocytes 0.7 thou/uL (0.11-0.59); %Basophils 0.8 % (0.0-1.0); %Eosinophils 3.6 % (0.0-10.0); %Lymphocytes 19.7 % (21.0-51.0); %Neutrophils 69.9 % (42.0-75.0); Hemoglobin 13.7 g/dL (12.0-16.0); Mean Corpuscular Hemoglobin 27.4 pg (27.0-31.0); Mean Corpuscular Volume 85.5 fL (78.0-98.0); Mean Platelet Volume 8.3 fL (7.4-10.4); Platelet Count 204 thou/uL (130-400); RBC Distribution Width 14.9 % (11.5-14.5); Red Blood Cell (RBC) Count 4.99 mill/uL (4.20-5.40); White Blood Cell (WBC) Count 11.4 thou/uL (4.8-10.8)
--- NOTE | 2018-12-20 18:12 | CT ---
CT HEAD WITHOUT CONTRAST: 12/20/2018 HISTORY: Fall. Forehead contusion. COMPARISON: 07/31/2018 TECHNIQUE: Axial CT imaging obtained at 5 mm intervals, from the vertex through the skull base, without contrast . FINDINGS: There is a focal area of frontal scalp swelling on the right, superior to the right orbit. there is no associated calvarial fracture. The imaged paranasal sinuses and mastoid air cells are well aerate d. There is periventricular, deep, and subcortical white matter hypodensity, evidence of small vessel di sease. There is mild cerebral and cerebellar volume loss with no intracranial hemorrhage, midline sh ift, or mass effect. IMPRESSION: Right-sided scalp swelling. Small vessel disease. No fracture or intracranial hemorrhage. POS: [facility]
[2018-12-20 18:15] LABS: ALT (SGPT) 13 U/L (8-55); AST (SGOT) 19 U/L (5-34); Albumin 3.7 g/dL (3.4-4.8); Alkaline Phosphatase 98 U/L (40-150); Anion Gap 11 mmol/L (10-20); BUN (Urea Nitrogen) 14 mg/dL (9.8-20.1); Bilirubin, Total 0.7 mg/dL (0.2-1.2); Calc. Creatinine Clearance 0 mL/min (70-130); Calcium 9.1 mg/dL (7.8-10.44); Carbon Dioxide 29 mmol/L (23-31); Chloride 106 mmol/L (98-107); Estimated GFR-MDRD 65; Globulin 3.2 g/dL (2.4-3.5); Glucose 121 mg/dL (83-110); Protein, Total 6.9 g/dL (6.0-8.3); Sodium 142 mmol/L (136-145)
--- NOTE | 2018-12-20 18:15 | CT ---
CT CERVICAL SPINE: 12/20/2018 HISTORY: Fall. Trauma. Pain. COMPARISON: 07/31/2018 TECHNIQUE: Axial CT imaging obtained at 2 mm intervals, from the skull base through the lung apices, without con trast. Coronal and sagittal reformatted imaging obtained. FINDINGS: The imaged lung apices appear unremarkable. There is stable nonspecific lingual tonsillar hypertrophy. Scattered atherosclerotic calcification a gain noted within the neck. The C1 ring is intact. There is moderate degenerative change at the atlantoaxial interspace. No wid ening of the atlantoaxial interspace or craniocervical junction. The dens, the occipital condyles, t he C1-C2 articulation, and the cervicothoracic junction demonstrate no acute findings. There is no s ignificant anterolisthesis or retrolisthesis. No prevertebral soft tissue swelling. There is disk s pace narrowing with degenerative endplate change and anterior osteophyte formation at C4-C5, C5-C6, a nd C6-C7. There is posterior osteophyte formation at C5-C6 and C6-C7 as well. Scattered bilateral f acet and uncovertebral osteophyte formation noted, most prominent on the left at C7-T1 and on the rig ht at C3-C4 and C4-C5. No displaced fracture or evidence of dislocation. IMPRESSION: No acute fracture or dislocation seen. POS: [facility]
[2018-12-20 18:29] LABS: Bilirubin Negative (Negative); Blood, Urine Small (Negative); Clarity CLOUDY (Clear); Glucose, Urine (Dipstick) Negative (Negative); Leukocyte Small (Negative); Nitrite Positive (Negative); Protein, Urine (Dipstick) 100 mg/dL (Neg-Trace); pH, Urine 6.5 (5.0-9.0)
[2018-12-20 18:31] LABS: Bacteria/HPF 4+ HPF (None Seen); Hyaline Casts/LPF 0-3 HYALINE CAST LPF (0-3 Hyaline); Pathc Cast-AUWi Flag 0.27 (0-2.49)
[2018-12-20] MEDS ORDERED: cefTRIAXone\\ROCEPHIN 2 GM VIAL ONE (19:11)
== END 2018-12-20 20:24 | disposition home or self-care (01) ==
LOC: ERS 17:10
DX: S00.83XA Contusion of other part of head, initial encounter (principal); N12 Tubulo-interstitial nephritis, not specified as acute or chronic; E78.5 Hyperlipidemia, unspecified; I10 Essential (primary) hypertension; G30.9 Alzheimer's disease, unspecified; F02.80 Dementia in other diseases classified elsewhere, unspecified severity, without behavioral disturbance, psychotic disturbance, mood disturbance, and anxiety; W19.XXXA Unspecified fall, initial encounter; Y92.129 Unspecified place in nursing home as the place of occurrence of the external cause
CPT/HCPCS: 36415; 70450; 72125; 80053; 81003; 81015; 84484; 85025; 85379; 96365; J0696

== ENCOUNTER 2020-04-11 16:12 | Outpatient (CLI) | payer MEDICARE ==
--- NOTE | 2020-04-11 16:45 | RAD ---
XR Hip Rt 2-3 View History: Fall. Pain Comparison: None. Findings: No acute displaced fracture or malalignment. The large acetabular osteophyte formation. Extensive enthesopathic change of the gluteus musculature from the pelvis. Large volume stool within the rectum. Bridging right lateral osteophyte at L4/L5. Impression: Degenerative changes. No acute osseous abnormality.
--- NOTE | 2020-04-11 16:51 | RAD ---
RADIOGRAPH LEFT HIP TWO VIEWS 04/11/20 HISTORY: 75-year-old female with posttraumatic left hip pain and decreased range of motion after falling twice two days ago. FINDINGS: Prominent enthesophytes at the lateral acetabular roof, greater trochanter, and iliac wing. Femoral h ead contour maintained. No dislocation. Multiple subchondral cysts around the left hip joint. Small s ubcapital osteophytosis. Moderate DJD at left SI joint. Multilevel lower lumbar degenerative disc dis ease. No displaced acute fracture identified. No high grade hip joint space narrowing. IMPRESSION: 1. No acute fracture identified. 2. Mild to moderate osteoarthrosis of the left hip joint. 3. Degenerative changes at the left sacroiliac joint. 4. DISH (diffuse idiopathic skeletal hyperostosis). 5. Lower lumbar spondylosis. POS: [facility]
== END 2020-04-11 16:13 | disposition home or self-care (01) ==
LOC: BICRAD 16:12
PROVIDERS: ATTEND Internal Medicine
DX: M25.551 Pain in right hip (principal); M25.552 Pain in left hip; M47.898 Other spondylosis, sacral and sacrococcygeal region; M48.10 Ankylosing hyperostosis [Forestier], site unspecified; M47.816 Spondylosis without myelopathy or radiculopathy, lumbar region; M16.0 Bilateral primary osteoarthritis of hip